=== PATIENT | female | born 1980 | race Two or more races ===

== ENCOUNTER 2017-02-06 14:18 | Day surgery (SDC) | payer BC ==
[~2017-02-06 14:18] MED LIST: Dexamethasone 4 MG/ML 5 ML MDV ONE; Fluorescein 5 ML Vial ONE; Ibuprofen 400 MG Tab ONE; Ketorolac 30 MG/ML SDV ONE; Lactated Ringers 1,000 ML IV SCH; Midazolam 1 MG/ML 2 ML SDV ONE; Ondansetron 4 MG/2 ML SDV ONE; Propofol 200 MG/20 ML SDV ONE; Sodium Chloride 0.9% 10 ML Syringe FLUSH PRN; Sodium Chloride 0.9% 2.5 ML Syringe FLUSH PRN; fentaNYL 100 MCG/2 ML SDV ONE
--- NOTE | 2017-02-06 18:19 | OR ---
SURGEON: Claire Mohan MD DATE OF PROCEDURE: 02/06/2017 PREOPERATIVE DIAGNOSES: 1. Menorrhagia. 2. Possible polyp on pelvic sonogram. POSTOPERATIVE DIAGNOSIS: Menorrhagia. PROCEDURE: Diagnostic hysteroscopy, dilatation with curettage. ANESTHESIA: General endotracheal. ESTIMATED BLOOD LOSS: Minimal. FINDINGS: Mobile anteverted mobile uterus, 7 weeks size. No cervical lesions or palpable adnexal masses. Hysteroscopic findings revealed a fluffy polypoid endometrial lining but no definite polyps or fibroids seen. Both ostia were visualized. COMPLICATIONS: None. DISPOSITION: Stable to recovery room. BRIEF HISTORY: The patient is a 37-year-old lady who is undergoing investigations for infertility and also has a history of irregular cycles with prolonged heavy periods. On sonogram,there was an area with increased vascularity at the lower uterine segment which is consistent with most likely a polyp and I had initially recommended the patient have a sonohysterogram for further evaluation. But she continued to bleed and we decided to proceed with hysteroscopy as an alternative, as this would enable us to perform a polypectomy and also a D and C, which was serve both as a diagnostic and operative procedure. The patient accepted this recommendation after the benefits and risks were discussed with her in detail. Appropriate consent was obtained. DESCRIPTION OF PROCEDURE: She was taken to the operating room, where general anesthesia induction was performed without difficulty. After adequate level of anesthesia, she was placed in dorsal lithotomy position, prepped and draped in the usual sterile fashion for a vaginal procedure. The bladder was emptied. Examination under anesthesia revealed the aforementioned findings. A weighted speculum was placed into the vagina and the anterior lip of the cervix was grasped with an Allis clamp. The uterine cavity was sounded to a depth of 8 cm. The os was serially dilated up to a number #7 Hegar dilator and a 6.2 mm diagnostic scope was inserted into the uterine cavity under direct visualization using normal saline as a distention media. Upon entering the uterine cavity, the patient was noted to have the afore mentioned findings. The hysteroscope was then withdrawn and curettage was performed. Copious amount of tissue was obtained. After the curettage, the hysteroscope was reinserted into the endometrial cavity and the lining was noted to be adequately curetted and no abnormality or injuries were noted. All the instruments were removed from the patient's vagina. The site of the Allis clamp on the cervix was noted to be hemostatic. The vagina was cleaned out. All sponge and instrument counts were correct at the end of the procedure. The input and output of normal saline were calculated by the [employer] fluid management system and the deficit was recorded on the nurse's chart. Please refer to it for adequate amount. The patient was taken to the recovery room in stable condition. LAUREEN / BRADLY /[id number] MTDD
== END 2017-02-13 10:15 | disposition home or self-care (01) ==
LOC: MW.SDS 14:18
PROVIDERS: ATTEND Obstetrics & Gynecology
DX: N92.0 Excessive and frequent menstruation with regular cycle (principal); E03.9 Hypothyroidism, unspecified; E10.9 Type 1 diabetes mellitus without complications; E78.5 Hyperlipidemia, unspecified; E66.9 Obesity, unspecified; Z68.30 Body mass index [BMI] 30.0-30.9, adult; Z79.899 Other long term (current) drug therapy; Z79.84 Long term (current) use of oral hypoglycemic drugs
CPT/HCPCS: 36415; 58558; 84703; 85027; 86850; 86900; 86901; 88305; J1100; J1885; J2250; J2405; J3010; 00952; J2704